=== PATIENT | male | born 1995 ===

== ENCOUNTER 2019-06-27 19:23 | Emergency (ER) | payer BC ==
--- NOTE | 2019-06-27 19:51 | EDM.PDOC ---
ED HPI GENERAL MEDICAL PROBLEM - General Chief Complaint: Upper Extremity Injury/Pain Stated Complaint: INJURY TO RIGHT WRIST Time Seen by Provider: 06/27/19 19:38 Source of Information: Reports: Patient History Limitations: Reports: No Limitations - History of Present Illness INITIAL COMMENTS - FREE TEXT/NARRATIVE: 23-year-old male presents to the emergency room with a chief complaint of right wrist pain that is been going on for 3 months. Patient has had surgery in this wrist for tendon repair in the past. Patient states she has pain swelling hammer lifting and moving the right wrist. Patient states she has noticed significant trauma that he knows of but he is unable to use his wrist at work secondary to pain Onset: Today Duration: Chronic, Getting Worse Location: Reports: Upper Extremity, Right Quality: Reports: Ache Severity: Mild Improves with: Reports: None Worsens with: Reports: Movement Context: Reports: Activity, Lifting Right Hand Pain Score (Numeric/FACES): 8 - Related Data Allergies Allergy/AdvReac Type Severity Reaction Status Date / Time Sulfa (Sulfonamide Allergy Hives Verified 06/27/19 19:41 Antibiotics) Home Meds: Home Meds Lisdexamfetamine Dimesylate [Vyvanse] 20 mg PO DAILY 06/27/19 [History] Review of Systems - Review of Systems Review Of Systems: See Below Constitutional: Reports: No Symptoms Eyes: Reports: No Symptoms Ears: Reports: No Symptoms Nose: Reports: No Symptoms Mouth/Throat: Reports: No Symptoms Respiratory: Reports: No Symptoms Cardiovascular: Reports: No Symptoms GI/Abdominal: Reports: No Symptoms Genitourinary: Reports: No Symptoms Musculoskeletal: Reports: Hand Pain, Joint Pain Skin: Reports: No Symptoms Neurological: Reports: No Symptoms Psychiatric: Reports: No Symptoms ED EXAM, GENERAL - Physical Exam Exam: See Below Free Text/Narrative:: 23-year-old gentleman with chronic right wrist pain. Patient has pain with movement of the wrist. 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 And movement of the right thumb. No significant injury seen. No swelling. Exam Limited By: No Limitations General Appearance: Alert, WD/WN, No Apparent Distress Eye Exam: Bilateral Eye: Normal Inspection Ears: Normal External Exam Nose: Normal Inspection, Normal Mucosa Throat/Mouth: Normal Inspection, Normal Lips Head: Atraumatic, Normocephalic Neck: Normal Inspection Respiratory/Chest: No Respiratory Distress Extremities: Normal Inspection, Other (Right wrist decreased range of motion. No evidence of swelling. decreased bead inspector strength) Skin Exam: Warm Course - Vital Signs Text/Narrative:: This patient's x-rays show previous surgery to the right thumb. There is no acute injury at this time seen. Will apply thumb splints and have the patient follow-up with orthopedics Workmen's Comp. Last Recorded V/S: Last Vital Signs Temp 96.7 F L 06/27/19 19:44 Pulse 86 06/27/19 19:44 Resp 18 06/27/19 19:44 BP 157/100 H 06/27/19 19:44 Pulse Ox 98 06/27/19 19:44 - Orders/Labs/Meds Orders: Active Orders 24 hr Category Date Time Status DME for Discharge [COMM] Stat Oth 06/27/19 20:22 Ordered Departure - Departure Time of Disposition: 20:15 Disposition: Home, Self-Care 01 Clinical Impression: Strain of tendon of intrinsic muscle of thumb - Discharge Information Instructions: Cast or Splint Care, Adult, [id number] Referrals: Gaviota Lebron MD [Primary Care Provider] - Forms: ED Department Discharge Additional Instructions: Please see orthopedist in [place]. Use the self splint for support. If you have pain in the thumb or hand area then you should not use it for work. You need to follow-up with your Workmen's Comp. physician for a work note. Sepsis Event Note - Evaluation Sepsis Screening Result: No Definite Risk - Focused Exam Vital Signs: Vital Signs Temp Pulse Resp BP Pulse Ox 06/27/19 19:44 96.7 F L 86 18 157/100 H 98 Date Exam was Performed: 06/27/19 Time Exam was Performed: 20:23 - My Orders Last 24 Hours: My Active Orders 06/27/19 20:22 DME for Discharge [COMM] Stat - Assessment/Plan Last 24 Hours: My Active Orders 06/27/19 20:22 DME for Discharge [COMM] Stat
--- NOTE | 2019-06-27 20:10 | CR ---
Right wrist: 3 views of the right wrist were obtained. Comparison: No previous wrist exam. Surgical anchor is noted within the base of the proximal phalanx of the thumb. Joint spaces within the wrist are maintained. No acute fracture, dislocation or other bony abnormality is seen. Impression: 1. Previous surgery within the right thumb. 2. Nothing acute is appreciated on right wrist exam. Diagnostic code #2 Study was dictated in MDT
== END 2019-06-27 20:54 | disposition home or self-care (01) ==
LOC: MW.ED 19:23
DX: S66.411A Strain of intrinsic muscle, fascia and tendon of right thumb at wrist and hand level, initial encounter (principal); Z88.2 Allergy status to sulfonamides; Z79.899 Other long term (current) drug therapy; X58.XXXA Exposure to other specified factors, initial encounter
CPT/HCPCS: 29125; 73110-26-RT; 73110-RT; 99283; 99283-25